=== PATIENT | female | born 1990 | race Caucasian/White ===

== ENCOUNTER 2020-06-28 09:28 | Emergency (ER) | payer SELFPAY ==
[2020-06-28] MEDS ORDERED: KETOROLAC 30 MG/ML 1ML VIAL As Ordered ONE (11:16)
[2020-06-28] MEDS ORDERED: KETOROLAC 30 MG/ML 1ML VIAL ONE (12:00)
[2020-06-28] MEDS ORDERED: CIPROFLOXACIN/D5W 400 MG/200 ML BAG (J0744) ONE (12:00)
[2020-06-28] MEDS ORDERED: CIPROFLOXACIN/D5W 400 MG/200 ML BAG (J0744) As Ordered ONE (13:15)
[2020-08-12 11:14] LABS: BASO % 0.2 % (0.0-1.0); EOS % 0.1 % (0.0-3.0); HEMATOCRIT 44.9 % (36.0-47.0); HEMOGLOBIN 14.7 g/dl (12.0-15.5); LYMPH % 12.2 % (24.0-44.0); MEAN CORPUSCULAR HEMOGLOBIN 30.2 pg (27.0-33.0); MEAN CORPUSCULAR HGB CONC 32.7 g/dl (32.0-36.5); MEAN CORPUSCULAR VOLUME 92.4 fl (80.0-96.0); MONO # 0.8 10^3/uL (0.0-0.8); MONO % 5.2 % (0.0-5.0); NEUTROPHILS # 13.1 10^3/uL (1.5-8.5); NEUTROPHILS % 81.5 % (36.0-66.0); PLATELET COUNT, AUTOMATED 257 10^3/uL (150-450); RED BLOOD COUNT 4.86 10^6/uL (4.00-5.40); WHITE BLOOD COUNT 16.1 10^3/uL (4.0-10.0)
[2020-08-12 13:44] LABS: APPEARANCE, URINE CLOUDY (CLEAR); BACTERIA, URINE AUTO 2+ (NEGATIVE); BILIRUBIN, URINE AUTO NEGATIVE (NEGATIVE); BLOOD, URINE BLOOD 1+ (NEGATIVE); COLOR, URINE YELLOW (YELLOW); GLUCOSE, URINE (UA) AUTO NEGATIVE (NEGATIVE); KETONE, URINE AUTO NEGATIVE (NEGATIVE); LEUKOCYTE ESTERASE, URINE AUTO 3+ (NEGATIVE); MUCUS, URINE SMALL (NEGATIVE); NITRITE, URINE AUTO NEGATIVE (NEGATIVE); PROTEIN, URINE AUTO NEGATIVE (NEGATIVE); RBC, URINE AUTO 7 /HPF (0-3); SPECIFIC GRAVITY URINE AUTO 1.008 (1.002-1.035); SQUAMOUS EPITHELIAL CELL UR AU 2 /HPF (0-6); UROBILINOGEN, URINE AUTO 0.2 mg/dL (0.0-2.0); WBC, URINE AUTO TNTC /HPF (0-3)
== END 2020-06-28 15:02 | disposition home or self-care (01) ==
LOC: M ED 09:28
DX: N10 Acute pyelonephritis (principal); Z88.5 Allergy status to narcotic agent; Z88.0 Allergy status to penicillin
CPT/HCPCS: 74176; 80048; 81001; 84703; 85025; 87088; 87186; 96374; 96375; 99284; J0744; J1885

== ENCOUNTER 2020-07-25 11:41 | Emergency (ER) | payer SELFPAY ==
[~2020-07-25] VITALS: Ht 170.2 cm; Wt 106.8 kg
[2020-07-25] MEDS ORDERED: IBUP200C25 PO (11:58)
[2020-07-25] MEDS ORDERED: LIDOCAINE 5% (LIDODERM) PATCH TD ONE (13:15)
[2020-07-25] MEDS ORDERED: CYCLOBENZAPRINE 10MG TABLET PO ONE (13:30)
[2020-07-25] MEDS ORDERED: KETOROLAC 30 MG/ML 1ML VIAL IM ONE (14:00)
[2020-07-25] MEDS ORDERED: CYCL5TAB PO (14:38)
[2020-07-25] MEDS ORDERED: LIDO5DIS41 TOP (14:38)
[2020-07-25 14:44] VITALS: BP 132/68
[2020-07-25] MEDS ORDERED: **NOTE PATIENT COMMENT** MISC XX SCH (21:00)
== END 2020-07-25 14:46 | disposition home or self-care (01) ==
LOC: M ED 11:41
DX: S39.012A Strain of muscle, fascia and tendon of lower back, initial encounter (principal); X58.XXXA Exposure to other specified factors, initial encounter; Y92.9 Unspecified place or not applicable; Y93.9 Activity, unspecified; Y99.9 Unspecified external cause status
CPT/HCPCS: 81001; 84702; 96372; 99283; J1885